=== PATIENT | female | born 1980 | race Caucasian/White ===

== ENCOUNTER 2023-07-18 04:26 | Day surgery (SDC) | payer OTHER ==
[2023-07-13 13:53] VITALS: BMI 42.2
[2023-07-18] MEDS ORDERED: ROCURONIUM BROMIDE 50 MG/5 ML SYRINGE ONE (13:24)
[2023-07-18] MEDS ORDERED: MIDAZOLAM HCL 2 MG/2 ML SINGLE DOSE VIAL ONE (13:24)
[2023-07-18] MEDS ORDERED: FENTANYL CITRATE/PF 50 MCG/ML VIAL ONE ×2 (13:24→13:48)
[2023-07-18] MEDS: ceFAZolin SODIUM 1 GM VIAL IVPB ONE (13:43)
[2023-07-18] MEDS ORDERED: NEOSTIGMINE METHYLSULFATE 0.5 MG/1 ML - 10 ML MDV ONE (13:49)
[2023-07-18 15:09] VITALS: TEMP 97.8
[2023-07-18] MEDS: KETOROLAC TROMETHAMINE 10 MG TABLET PO ONE (16:20)
[2023-07-18 17:38] VITALS: BP 134/87; PULSE 95; RESP 20
== END 2023-07-18 17:35 | disposition home or self-care (01) ==
LOC: JASU-SURG 04:26
PROVIDERS: ATTEND Urology
PROC: 0TBB8ZX Excision of Bladder, Via Natural or Artificial Opening Endoscopic, Diagnostic (ICD-10-PCS; principal; 2023-07-18 13:30)
DX: N30.20 Other chronic cystitis without hematuria (principal)
CPT/HCPCS: 81025; 88305-TC; 94760

== ENCOUNTER 2024-01-15 23:48 | Observation (INO) | payer BC, OTHER ==
[2024-01-16] MEDS: ACETAMINOPHEN 1000 MG/100 ML BAG IVPB ONE (01:54)
[2024-01-16] MEDS: ONDANSETRON 4 MG/2 ML VIAL IVPUSH ONE (01:55)
[2024-01-16] MEDS ORDERED: KETOROLAC TROMETHAMINE 30 MG/1 ML VIAL ONE (01:56)
[2024-01-16] MEDS ORDERED: ACETAMINOPHEN INJECTION 100 ML ONE (01:56)
[2024-01-16] MEDS ORDERED: ONDANSETRON 4 MG/2 ML VIAL ONE (01:56)
[2024-01-16 02:00] LABS: EOS % 1.5 % (0-4.5); HEMATOCRIT 41.3 % (32.4-45.2); HEMOGLOBIN 14.3 GM/dL (10.7-15.3); LYMPH % 33.2 % (8-40); MCH 30.7 pg (25.7-33.7); MCHC 34.6 g/dl (32.0-36.0); MEAN CELL VOLUME 88.7 fl (80-96); MEAN PLT VOLUME 9.7 fl (7.5-11.1); MONO % 11.6 % (3.8-10.2); NEUT % 52.7 % (42.8-82.8); PLATELET COUNT 189 10^3/uL (134-434); RBC 4.66 M/mm3 (3.60-5.2)
[2024-01-16] MEDS: KETOROLAC TROMETHAMINE 30 MG/1 ML VIAL IVPUSH ONE (02:02)
[2024-01-16 02:13] LABS: EPI CELLS 15 /uL (0-25.1); HYALINE CASTS 0 /uL (0-3.1); PH,URINE 5.5 (5.0-8.0); URINE APPEARANCE CLEAR; URINE BACTERIA >9,000 /uL (0-1359); URINE BILIRUBIN NEGATIVE (NEGATIVE); URINE COLOR ORANGE; URINE GLUCOSE (UA) NEGATIVE (NEGATIVE); URINE KETONE NEGATIVE (NEGATIVE); URINE LEUK ESTERASE NEGATIVE (NEGATIVE); URINE NITRITE POSITIVE (NEGATIVE); URINE PROTEIN 1+ (NEGATIVE); URINE RBC 5969 /uL (0-23.9); URINE UROBILINOGEN 0.2 mg/dL (0.2-1.0)
[2024-01-16 02:22] LABS: ALBUMIN 4.2 g/dl (3.4-5.0); BLOOD UREA NITROGEN 8.5 mg/dL (7-18); CALCIUM 9.3 mg/dL (8.5-10.1)
[2024-01-16 02:25] LABS: CREATININE 0.9 mg/dL (0.55-1.3)
[2024-01-16 02:27] LABS: BILIRUBIN,TOTAL 1.4 mg/dL (0.2-1); TOT PROT 7.1 g/dl (6.4-8.2)
[2024-01-16 03:09] LABS: LACTIC ACID 4.2 mmol/L (0.4-2.0); POTASSIUM 4.2 mmol/L (3.5-5.1)
[2024-01-16] MEDS: SODIUM CHLORIDE 0.9% 500 ML INFUS.BAG IV ONE (03:48)
[2024-01-16 06:20] LABS: LACTIC ACID 2.4 mmol/L (0.4-2.0)
[2024-01-16] MEDS ORDERED: MORPHINE SULFATE 2 MG/ML SYRINGE ONE (07:39)
[2024-01-16] MEDS: morphine SULFATE 4 MG/ML VIAL IVPUSH ONE (07:47)
[2024-01-16] MEDS ORDERED: ACETAMINOPHEN 325 MG TABLET (FP) PO PRN (08:40)
[2024-01-16 09:28] LABS: URINE WBC 69 /uL (0-25.8)
[2024-01-16] MEDS ORDERED: CEFTRIAXONE 1 GM/50 ML BAG ONE (11:26)
[2024-01-16] MEDS: CEFTRIAXONE 1 G/50 ML PREMIX 50 ML IVPB SCH (11:50)
[2024-01-16] MEDS ORDERED: oxyCODONE HCL 5 MG TABLET ONE (11:51)
[2024-01-16] MEDS: oxyCODONE HCL 5 MG TABLET PO PRN (11:56)
[2024-01-16 19:14] LABS: BILIRUBIN,DIRECT 0.3 mg/dL (0.0-0.2)
[2024-01-16 20:44] VITALS: BMI 42.2
[2024-01-16 20:59] VITALS: RESP 18
[2024-01-17] MEDS: LACTATED RINGERS SOLUTION 1,000 ML/1,000 ML INFUS.BAG IV SCH (01:11)
[2024-01-17] MEDS: KETOROLAC TROMETHAMINE 15 MG/ML VIAL IVPUSH PRN (01:11)
[2024-01-17 09:03] LABS: HEMATOCRIT 37.1 % (32.4-45.2); HEMOGLOBIN 13.2 GM/dL (10.7-15.3); MCH 31.3 pg (25.7-33.7); MCHC 35.6 g/dl (32.0-36.0); MEAN CELL VOLUME 88.1 fl (80-96); MEAN PLT VOLUME 9.8 fl (7.5-11.1); PLATELET COUNT 165 10^3/uL (134-434); RBC 4.21 M/mm3 (3.60-5.2); RDW 13.9 % (11.6-15.6); WHITE BLOOD COUNT 2.9 K/mm3 (4.0-10.0)
[2024-01-17 09:18] LABS: POTASSIUM 3.7 mmol/L (3.5-5.1)
[2024-01-17 09:24] LABS: ALBUMIN 3.7 g/dl (3.4-5.0); BLOOD UREA NITROGEN 12.2 mg/dL (7-18)
[2024-01-17 09:27] LABS: CREATININE 0.9 mg/dL (0.55-1.3)
[2024-01-17 09:29] LABS: BILIRUBIN,TOTAL 1.8 mg/dL (0.2-1); TOT PROT 6.5 g/dl (6.4-8.2)
[2024-01-17] MEDS ORDERED: morphine CARPU-JECT 2 MG/1 ML DISP.SYRIN IVPUSH PRN (11:44)
[2024-01-17] MEDS ORDERED: oxyCODONE HCL 5 MG TABLET PO PRN (11:45)
[2024-01-17 15:48] LABS: HIV INTERPRETATION NEGATIVE (NEGATIVE)
[2024-01-17] MEDS: ACETAMINOPHEN 1000 MG/100 ML BAG IVPB ONE (22:04)
[2024-01-18] MEDS: FLUCONAZOLE 150 MG TABLET PO ONE (09:24)
[2024-01-18] MEDS: ACETAMINOPHEN 325 MG TABLET (FP) PO PRN (15:00)
[2024-01-19 00:08] VITALS: BP 130/89; PULSE 92; TEMP 97.8
== END 2024-01-19 01:10 ==
LOC: JER 23:48 → JERBED 01-16 06:00 → J8W 01-16 16:49
PROVIDERS: ADMIT Internal Medicine; ATTEND Internal Medicine
PROC: 3E033NZ Introduction of Analgesics, Hypnotics, Sedatives into Peripheral Vein, Percutaneous Approach (ICD-10-PCS; principal; 2024-01-16)
PROC: 3E0333Z Introduction of Anti-inflammatory into Peripheral Vein, Percutaneous Approach (ICD-10-PCS; 2024-01-16)
PROC: 3E033GC Introduction of Other Therapeutic Substance into Peripheral Vein, Percutaneous Approach (ICD-10-PCS; 2024-01-16)
PROC: 3E0337Z Introduction of Electrolytic and Water Balance Substance into Peripheral Vein, Percutaneous Approach (ICD-10-PCS; 2024-01-16)
DX: N94.6 Dysmenorrhea, unspecified (principal); R10.84 Generalized abdominal pain; N92.0 Excessive and frequent menstruation with regular cycle; R10.2 Pelvic and perineal pain; N39.0 Urinary tract infection, site not specified; N89.8 Other specified noninflammatory disorders of vagina; L29.9 Pruritus, unspecified; Z87.448 Personal history of other diseases of urinary system; Z96.0 Presence of urogenital implants
CPT/HCPCS: 36415; 74177-TC; 76705-TC; 80053; 81003; 82248; 83605; 83690; 83735; 84443; 84703; 85025; 85027; 86850; 86900; 86901; 87086; 87389; 87491; 87591; 87661; 93005; 93010; 96361; 96365; 96375; 96376; 97116-GP; 97162-GP; 99285-25; G0378; J0131; Q9967